=== PATIENT | male | born 1990 | race Caucasian/White ===

== ENCOUNTER 2020-04-06 00:51 | Emergency (ER) | payer BC ==
[~2020-04-06] VITALS: Ht 180.3 cm; Wt 99.8 kg
[2020-04-06] MEDS ORDERED: oxyCODONE/APAP (5/325 MG) 1 UDTAB TABLET ONE (01:00)
[2020-04-06] MEDS ORDERED: oxyCODONE/APAP (5/325 MG) 1 UDTAB TABLET PO ONE (01:00)
--- NOTE | 2020-04-06 01:03 | NUR ---
PATIENT CAME TO ER BED 1 C/O RIGHT SHOULDER PAIN. PATIENT STATES THAT HE WAS WALKING HIS DOG WHEN HIS DOG MADE A SHARP TURN, CAUSING HIM TO FOLLOW FORWARD. PATIENT DENIES HITTING HIS HEAD/ LOSING CONSCIOUSNESS. PATIENT IS AAOX4. AMBULATORY WITH STEADY. BREATHING EVENLY AND UNLABORED ON ROOM AIR.
--- NOTE | 2020-04-06 01:10 | NUR ---
xray at bedside
[2020-04-06 02:02] LABS: CALCIUM, SERUM 8.8 mg/dL (8.5-10.1); CREATININE 1.3 mg/dL (0.6-1.3); POTASSIUM 3.5 mmol/L (3.5-5.1)
[2020-04-06] MEDS ORDERED: IOHEXOL-300 100 ML VIAL IV ONE (02:13)
[2020-04-06] MEDS ORDERED: IV NS 0.9% 250 ML IV ONE (02:13)
[2020-04-06] MEDS ORDERED: CT SWABBABLE VALVE TRANS SET 1 EA INFUS.SET MC ONE (02:13)
[2020-04-06] MEDS ORDERED: KETOROLAC TROMETHAMINE INJ 60 MG/2 ML VIAL IM ONE ×2 (03:07→03:30)
--- NOTE | 2020-04-06 03:15 | NUR ---
IV removed. Catheter intact and site benign. Pressure and 4x4 applied to site. No bleeding noted.
--- NOTE | 2020-04-06 03:15 | NUR ---
tech at bedside for shoulder sling
--- NOTE | 2020-04-06 03:18 | NUR ---
Patient discharged to home in stable condition. Written and verbal after care instructions given. Patient verbalizes understanding of instruction.
[2020-04-06 03:28] VITALS: BP 123/74
== END 2020-04-06 03:28 | disposition home or self-care (01) ==
LOC: ER 00:56
DX: S42.001A Fracture of unspecified part of right clavicle, initial encounter for closed fracture (principal); R07.89 Other chest pain; W19.XXXA Unspecified fall, initial encounter; Y93.K1 Activity, walking an animal; Y92.89 Other specified places as the place of occurrence of the external cause; Y99.8 Other external cause status
CPT/HCPCS: 36415; 71260; 73000; 80048; 99285; J7050; Q9967; J1885